=== PATIENT | female | born 1980 | race African-American/Black ===

== ENCOUNTER 2016-04-01 18:35 | Emergency (ER) | payer MEDICAID ==
[~2016-04-01] VITALS: Ht 157.5 cm; Wt 77.1 kg
[~2016-04-01 18:35] MED LIST: CYCLOBENZAPRINE10 MG ORAL; IBUPROFEN600 M1 PO; IBUPROFEN600 MG ORAL; IBUPROFEN800 M1 PO; KENALOG 0.1% CR15 GM APPLIC; LIDOCREAM5 GM TP; NKM; NORCO 5-325 TA1 EACH ORAL
--- NOTE | 2016-04-01 19:25 | Emergency Room Report ---
History of Present Illness General Chief Complaint: Chest Pain Source: Patient Present Illness HPI Patient presents with 2 complaints. The main one is that chief complaint irritation around her rectum. This has been present for approximately a week. She says that her boyfriend has been massaging oil around the area during foreplay. She denies any rectal penetration. She's been using triamcinolone and also Vaseline. Denies any fever. Has no pain there. It is itching. Denies any blood in the stool. The boyfriend has been using protection (condoms). She claims that she does not have any sexually transmitted disease. She's been using biotin and had looser stools recently. The second problem is chest pain. End of February she started having intermittent chest pain that she felt was indigestion. On March 15 she had severe episode where she almost passed out. She also had numbness on her arm. This improved. Although her doctor recommended she go to the emergency department she did not. Since that time the pain has gotten quite a bit better. No diabetes, HTN, family history. She smokes. No fevers, chills, dysuria. Last menses normal. Allergies: Coded Allergies: No Known Allergies (Verified , 03/10/06) Patient History Past Medical History: see triage record Social History: Reports: smoking Social History Narrative has boyfriend Last Menstrual Period: 03/15/16 : 5 Para: 0 Reviewed Nursing Documentation: PMH: Agreed, PSxH: Agreed Nursing Documentation-PM Past Medical History: No History, Except For Hx Cardiac Problems: No - anxiety Review of Systems All Other Systems: negative except mentioned in HPI Physical Exam Vital Signs Date Time Temp Pulse Resp B/P Pulse Ox O2 Delivery O2 Flow Rate FiO2 04/01/16 18:45 98.1 74 18 117/76 99 Room Air Sp02 EP Interpretation: reviewed, normal General Appearance: well appearing, no apparent distress, GCS 15 Head: normocephalic Eyes: bilateral eye normal inspection ENT: moist mucus membranes Neck: supple Respiratory: lungs clear, normal breath sounds Cardiovascular #1: regular rate, rhythm Cardiovascular #2: 2+ radial (R) Gastrointestinal: normal inspection, normal bowel sounds, non tender, no mass, non-distended Rectal: other - Minimal perirectal inflammation with possible ulcerative lesion Musculoskeletal: back normal, gait/station normal, normal range of motion Neurologic: alert, oriented x3, grossly normal Psychiatric: mood/affect normal Skin: normal inspection, warm/dry Medical Decision Making Diagnostic Impression: Primary Impression: Rectal inflammation Additional Impression: Chest pain Qualified Codes: R07.9 - Chest pain, unspecified ER Course Two problems. Most disconcerting is chest pain history with near syncope. This needs evaluation for arrhythmia, pericarditis and electrolyte abnormalities. Labs, EKG and CXR ordered. The second problem has a differential: herpes, allergic reaction, proctitis, STD, fungal infection. Exam more c/w viral process. Swab will be sent. EKG and labs unremarkable. Treated symptomatically. No medical emergency at this time. Patient stable for outpatient observation and treatment. EKG Diagnostic Results Rate: normal Rhythm: NSR ST Segments: no acute changes Rhythm Strip Diag. Results EP Interpretation: yes Rhythm: NSR, no PVC's, no ectopy Chest X-Ray Diagnostic Results EP Interpretation: Yes Findings: no consolidation, no effusion, no pneumothorax, no acute cardiopulmonary disease Number of Views: 1 Last Vital Signs Date Time Temp Pulse Resp B/P Pulse Ox O2 Delivery O2 Flow Rate FiO2 04/01/16 20:45 98.0 78 12 121/78 99 Room Air Status: improved Disposition: HOME, SELF-CARE Condition: Improved Scripts Famotidine (PEPCID) 20 Mg Tablet 20 MG ORAL DAILY, #30 TAB 0 Refills Prov: Norris Jackson M.D. 04/01/16 Bacitracin (Bacitracin) 28.4 Gm Oint...g. 1 APPLIC TOPIC BID, #30 GM Prov: Norris Jackson M.D. 04/01/16 Referrals: [facility],REFERRING (PCP) Norris Jackson M.D. Apr 01, 2016 19:25
[2016-04-01 19:45] LABS: BASOPHILS % (AUTO) 1.5 % (0.0-2.0); EOSINOPHILS % (AUTO) 1.8 % (0.0-3.0); LYMPHOCYTES % (AUTO) 40.4 % (20.0-45.0); MEAN CORPUSCULAR HEMOGLOBIN 28.5 PG (27.0-31.0); MEAN CORPUSCULAR HGB CONC 31.6 G/DL (32.0-36.0); MEAN CORPUSCULAR VOLUME 90 FL (80-99); MEAN PLATELET VOLUME 8.5 FL (6.5-10.1); MONOCYTES % (AUTO) 10.6 % (1.0-10.0); NEUTROPHILS % (AUTO) 45.7 % (45.0-75.0); PLATELET COUNT 241 K/UL (150-450); RED BLOOD COUNT 4.63 M/UL (4.20-5.40); RED CELL DISTRIBUTION WIDTH 12.8 % (11.6-14.8); WHITE BLOOD COUNT 9.4 K/UL (4.8-10.8)
[2016-04-01 19:55] LABS: TROPONIN I < 0.30 ng/mL (<=0.30)
[2016-04-01 19:56] LABS: ALANINE AMINOTRANSFERASE 22 U/L (3-33); ALBUMIN/GLOBULIN RATIO 1.5 (1.0-2.7); ANION GAP 15 (5-15); ASPARTATE AMINO TRANSFERASE 24 U/L (5-40); CALCIUM 9.3 mg/dL (8.6-10.2); CARBON DIOXIDE 25 mEQ/L (20-30); CHLORIDE 95 mEQ/L (98-107); CREATININE 0.9 mg/dL (0.5-0.9); GLOMERULAR FILTRATION RATE > 60 mL/min (>60); HEMOLYSIS 4; POTASSIUM 4.5 mEQ/L (3.4-4.9); SODIUM 135 mEQ/L (135-145); TOTAL PROTEIN 7.2 g/dL (6.6-8.7)
[2016-04-01 20:00] VITALS: BP 121/78
[2016-04-01 20:03] LABS: APPEARANCE,URINE CLEAR; KETONES,URINE NEGATIVE (NEGATIVE); LEUKOCYTE ESTERASE ,URINE NEGATIVE (NEGATIVE); NITRITE,URINE POSITIVE (NEGATIVE); PH,URINE 6 (4.5-8.0); PROTEIN,URINE NEGATIVE (NEGATIVE); UROBILINOGEN,URINE 4 MG/DL (0.0-1.0)
[2016-04-01 20:09] LABS: ICTOTEST NEGATIVE
[2016-04-01 20:13] LABS: RBC,URINE 0-2 /HPF (0 - 2)
[2016-04-01 20:14] LABS: SQUAMOUS EPITHELIAL CELL,UR FEW /LPF (NONE/OCC); WBC,URINE 0 /HPF (0 - 2)
[2016-04-01] MEDS ORDERED: Bacitracin Oint UD TOPIC ONE (20:15)
[2016-04-01] MEDS ORDERED: PEPCID20 MG ORAL (20:21)
[2016-04-01] MEDS ORDERED: BACITRACIN15 GM TOPIC (20:21)
[2016-04-01 20:45] VITALS: BP 121/78
--- NOTE | 2016-04-02 10:32 | Diagnostic Imaging Report ---
Indication: Chest pain Technique: Single portable AP view of the chest. Findings: Comparison: None. The bones and extra pulmonary soft tissues, cardiomediastinal silhouette, pulmonary vasculature and parenchyma, and pleural surfaces are unremarkable. IMPRESSION: Negative portable AP chest.
--- NOTE | 2016-04-02 18:03 | Cardiology Report ---
APPROVED REPORT EKG Measurement Heart [id number] Normal sinus rhythm Possible Left atrial enlargement Borderline ECG
== END 2016-04-01 20:46 | disposition home or self-care (01) ==
LOC: EMR 19:08
DX: K62.89 Other specified diseases of anus and rectum (principal); R07.9 Chest pain, unspecified; R55 Syncope and collapse; F17.200 Nicotine dependence, unspecified, uncomplicated
CPT/HCPCS: 36415; 71010; 80053; 80300; 81003; 81025; 82550; 84484; 85025; 87491; 87590; 93005; 99283

== ENCOUNTER 2017-07-30 08:27 | Emergency (ER) | payer MEDICAID, OTHER ==
[~2017-07-30] VITALS: Ht 157.5 cm; Wt 72.6 kg
[~2017-07-30 08:27] MED LIST changes: +BACITRACIN15 GM TOPIC; +PEPCID20 MG ORAL
[2017-07-30 08:46] VITALS: BP 137/90
[2017-07-30] MEDS ORDERED: IBUPROFEN600 MG ORAL (08:53)
--- NOTE | 2017-07-30 08:57 | Emergency Room Report ---
History of Present Illness General Chief Complaint: Flu Like Symptoms Source: Patient Present Illness HPI Patient present with complaints of body ache Started having a cough on Tuesday she started to feel that her with the cough after taking medication however today was having some increased aching Denies any sore throat denies any neck pain or photophobia Denies any chest pain Denies any coughing of blood Patient does have a history of smoking Otherwise presents for further evaluation Allergies: Coded Allergies: No Known Allergies (Verified , 03/10/06) Patient History Past Medical History: see triage record Pertinent Family History: none Reviewed Nursing Documentation: PMH: Agreed; PSxH: Agreed Nursing Documentation-PMH Hx Cardiac Problems: No - anxiety Review of Systems All Other Systems: negative except mentioned in HPI Physical Exam Vital Signs Date Time Temp Pulse Resp B/P (MAP) Pulse Ox O2 Delivery O2 Flow Rate FiO2 07/30/17 08:41 98.2 70 20 133/90 99 Room Air 98.2 Sp02 EP Interpretation: reviewed, normal General Appearance: well appearing, no apparent distress Head: normocephalic, atraumatic Eyes: bilateral eye PERRL, bilateral eye EOMI ENT: hearing grossly normal, normal pharynx, TMs + canals normal, uvula midline Neck: full range of motion, supple, no meningismus, no bony tend Respiratory: lungs clear, normal breath sounds, no rhonchi, no respiratory distress, no retraction, no accessory muscle use Cardiovascular #1: normal peripheral pulses, regular rate, rhythm, no edema, no gallop, no JVD, no murmur Gastrointestinal: normal bowel sounds, non tender, soft, no mass, no organomegaly, non-distended, no guarding, no hernia, no pulsatile mass, no rebound Genitourinary: no CVA tenderness Musculoskeletal: normal inspection Neurologic: oriented x3, responsive, cake washer III-XII nml as tested, motor strength/ tone normal, sensory intact Psychiatric: mood/affect normal Skin: normal color, no rash, warm/dry, palpation normal Lymphatic: normal inspection, no adenopathy Medical Decision Making Diagnostic Impression: Primary Impression: URI (upper respiratory infection) ER Course Patient has a fairly benign medical evaluation I do not suspect any meningitis or bacterial infection given the examination Patient will require further acute intervention And will return with any worsening changes Otherwise stable for initial conservative outpatient trial Last Vital Signs Date Time Temp Pulse Resp B/P (MAP) Pulse Ox O2 Delivery O2 Flow Rate FiO2 07/30/17 08:46 70 20 Room Air 07/30/17 08:46 98.2 137/90 99 98.2 Status: unchanged Disposition: HOME, SELF-CARE Condition: Stable Scripts Ibuprofen* (MOTRIN*) 600 Mg Tablet 600 MG ORAL Q8H PRN for For Pain, #20 TAB 0 Refills Prov: Eleazar Delatorre DO 07/30/17 Referrals: NON PHYSICIAN (PCP) Departure Forms: Return to Work Return to Work in (Days): 1 Return to Work Date: July 31, 2017 Patient Instructions: Upper Respiratory Infection, Adult Additional Instructions: Patient is provided with the discharge instructions notified to follow up with primary doctor in the next 2-3 days otherwise return to the er with any worsening symptoms. Please note that this report is being documented using [employer] technology. This can lead to erroneous entry secondary to incorrect interpretation by the dictating instrument. Eleazar Delatorre DO July 30, 2017 08:57
[2017-07-30 08:58] VITALS: BP 137/90
== END 2017-07-30 09:03 | disposition home or self-care (01) ==
LOC: EMR 08:51
DX: J06.9 Acute upper respiratory infection, unspecified (principal); F41.9 Anxiety disorder, unspecified
CPT/HCPCS: 99283

== ENCOUNTER 2019-01-27 14:47 | Emergency (ER) | payer SELFPAY ==
[~2019-01-27] VITALS: Ht 157.5 cm; Wt 74.8 kg
[2019-01-27 15:00] VITALS: BP 150/90
--- NOTE | 2019-01-27 15:00 | NUR ---
ED Nurse Note: Patient arrive to ED by car from home complaining nausea x 1 week. She vomited once this morning, no diarrhea or fever. She states that she only wants to be cleared by the doctor to be able to continue to work at her current position without limitation. Urine collected and sent to lab. Patient AxO x 4, bed in lowest position.
--- NOTE | 2019-01-27 15:21 | Emergency Room Report ---
History of Present Illness General Chief Complaint: Abdominal Pain Source: Patient, Medical Record Present Illness HPI Disclaimer: Please note that this report is being documented using [employer] technology. This can lead to erroneous entry secondary to incorrect interpretation by the dictating instrument. HPI: 38-year-old female with no reported medical history presents for evaluation of abdominal pain. Symptoms have been present for approximately 1 week. Describes it as upper and lower pain which is intermittent. Originally thought she pulled a muscle but had one episode of nonbloody none bilious emesis today. Cannot recall specific trigger for these pains. She was previously taking medication for acid reflux. She is currently on her menstrual period. Denies any fevers, chills, chest pain, shortness of breath, dysuria, hematuria, flank pain. He is able to eat and drink currently and has no complaints at this time. She was sent in for work for evaluation prior to returning to work. PMH: Denies PSH: Denies Allergies: Denies Social Hx: Smokes cigarettes. Occasional alcohol use Allergies: Coded Allergies: No Known Allergies (Verified , 03/10/06) Patient History Last Menstrual Period: 01/27/2019 Now: No : 1 Para: 0 Nursing Documentation-PMH Hx Cardiac Problems: No - anxiety Review of Systems All Other Systems: negative except mentioned in HPI Physical Exam Vital Signs Date Time Temp Pulse Resp B/P (MAP) Pulse Ox O2 Delivery O2 Flow Rate FiO2 01/27/19 14:54 98.2 65 15 152/96 (114) 97 Room Air General: Awake and alert, no acute distress HEENT: NC/AT. EOMI. moist mucous membranes Cardiovascular: RRR. S1 and S2 normal. No murmur appreciated Resp: Normal work of breathing. No cough, wheezing or crackles appreciated Abdomen: Abdomen is soft, nondistended. Nontender Skin: Intact. No abrasions, laceration or rash over the exposed skin MSK: Normal tone and bulk. Moving all extremities. No obvious deformity. Neuro: Awake and alert. Mentating appropriately. Medical Decision Making Diagnostic Impression: Primary Impression: Abdominal pain ER Course 38-year-old female with no medical history presents for evaluation of 1 week intermittent abdominal pain. She is currently asymptomatic has no complaints. She was sent in for evaluation prior to returning to work. Differential includes was not limited to muscle strain, GERD, pancreatitis, cholecystitis, viral syndrome, urinary tract infection. Patient's exam is completely benign and she is eating in the room without difficulty. Will obtain a urinalysis and test but otherwise the patient can return to full duties with Tylenol Motrin as needed for pain and discomfort. I did encourage her to restart her medication for acid reflux and limit her spicy food intake. Laboratory Tests Test 01/27/19 15:15 Urine Color Yellow Urine Appearance Cloudy Urine pH 6 (4.5-8.0) Urine Specific [place] 1.020 (1.005-1.035) Urine Protein 2+ (NEGATIVE) H Urine Glucose (UA) Negative (NEGATIVE) Urine Ketones 1+ (NEGATIVE) H Urine Blood 5+ (NEGATIVE) H Urine Nitrite Negative (NEGATIVE) Urine Bilirubin Negative (NEGATIVE) Urine Urobilinogen 4 MG/DL (0.0-1.0) H Urine Leukocyte Esterase 1+ (NEGATIVE) H Urine RBC 5-10 /HPF (0 - 2) H Urine WBC 2-4 /HPF (0 - 2) Urine Squamous Epithelial Cells Many /LPF (NONE/OCC) H Urine Bacteria Many /HPF (NONE) H Urine HCG, Qualitative Negative (NEGATIVE) Reevaluation Time: 15:40 Last Vital Signs Date Time Temp Pulse Resp B/P (MAP) Pulse Ox O2 Delivery O2 Flow Rate FiO2 01/27/19 14:54 98.2 65 15 152/96 (114) 97 Room Air Reevaluation Impression Alerted by nursing staff that the patient is requesting to leave immediately and does not want to wait for her lab results. She states her right is here. She can call records to obtain her lab results later this week. She should follow-up with her PMD. She is in no acute distress with stable vital signs. Stable for outpatient follow-up. Labs show positive leukocyte esterase and many bacteria there also many squamous cells and only 2-4 white cells. The patient denied any symptoms of a urinary tract infection and was on her menses. Will wait for the culture results. The patient left the emergency department prior to resolution of her labs. hCG was negative. Disposition: HOME, SELF-CARE Condition: Stable Referrals: NOT [facility]OSEN [facility]/,REFERRING (PCP) Dillon Dale MD Jan 27, 2019 15:20
[2019-01-27 15:39] LABS: APPEARANCE,URINE CLOUDY; BILIRUBIN, URINE NEGATIVE (NEGATIVE); GLUCOSE, URINE (UA) NEGATIVE (NEGATIVE); KETONES,URINE 1+ (NEGATIVE); LEUKOCYTE ESTERASE ,URINE 1+ (NEGATIVE); NITRITE,URINE NEGATIVE (NEGATIVE); PH,URINE 6 (4.5-8.0); PROTEIN,URINE 2+ (NEGATIVE); UROBILINOGEN,URINE 4 MG/DL (0.0-1.0)
[2019-01-27 15:42] LABS: COLOR,URINE YELLOW
[2019-01-27 15:45] VITALS: BP 148/91
== END 2019-01-27 15:45 | disposition home or self-care (01) ==
LOC: EMR 15:06
DX: R10.9 Unspecified abdominal pain (principal); F17.210 Nicotine dependence, cigarettes, uncomplicated; F41.9 Anxiety disorder, unspecified
CPT/HCPCS: 81003; 81025; 87086; 96374; 99284

== ENCOUNTER 2019-11-22 18:18 | Emergency (ER) | payer SELFPAY ==
[~2019-11-22] VITALS: Ht 157.5 cm; Wt 84.8 kg
[2019-11-22 18:31] VITALS: BP 137/82
--- NOTE | 2019-11-22 18:57 | Emergency Room Report ---
History of Present Illness General Chief Complaint: Skin Rash/Abscess Source: Patient Present Illness HPI 39 Yo Female presents to the ED c/o Itching, swelling, scabbing and erythema of multiple insect bites that are causing a 7/10 in severity burning pain. Pt. reports acute onset after awaking 3 days ago. Pt. denies fevers, chills or swollen tender lymph nodes. Denies lesions/rashes elsewhere on the body. Denies new medications or body washes or creams. Denies swelling of the lips, tongue , throat or airway. Denies wheezing, or shortness of breath. Denies recent travel , recent illness or ill contacts. denies blisters, oral lesions, or sloughing of the skin. Allergies: Coded Allergies: No Known Allergies (Verified , 03/10/06) COVID-19 Screening Contact w/high risk pt: No Experienced COVID-19 symptoms?: No COVID-19 Testing performed CLIENT SERVICE SUPERVISOR: No Patient History Past Medical History: see triage record Past Surgical History: none Pertinent Family History: none Now: No Immunizations: UTD Reviewed Nursing Documentation: PMH: Agreed; PSxH: Agreed Nursing Documentation-PMH Past Medical History: No History, Except For Hx Cardiac Problems: No - anxiety Review of Systems All Other Systems: negative except mentioned in HPI Physical Exam Vital Signs Date Time Temp Pulse Resp B/P (MAP) Pulse Ox O2 Delivery O2 Flow Rate FiO2 11/22/19 18:21 97.7 70 16 137/82 (100) 99 Room Air Sp02 EP Interpretation: reviewed, normal General Appearance: no apparent distress, alert, GCS 15, non-toxic Head: normocephalic, atraumatic Eyes: bilateral eye normal inspection, bilateral eye PERRL ENT: hearing grossly normal, normal voice, other - no swelling of the lips or tongue Neck: full range of motion, other - No stridor Respiratory: chest non-tender, lungs clear, normal breath sounds, no wheezing, speaking full sentences Musculoskeletal: back normal, normal range of motion, gait/station normal, non- tender Neurologic: alert, motor strength/tone normal, oriented x3, sensory intact, responsive, speech normal Psychiatric: judgement/insight normal Skin: rash - Multiple discrete scabbed lesions that are circular in appearance and no more than 1 cm each scattered on the left upper extremity. There is some surrounding erythema and soft tissue swelling. No blisters or vesicles. NO erythematous streaks Medical Decision Making PA Attestation Dr. Small is my supervising Physician whom patient management has been discussed with. Diagnostic Impression: Primary Impression: Insect bites of multiple sites, infected ER Course 39 Yo Female presents to the ED c/o Itching, swelling, scabbing and erythema of multiple insect bites that are causing a 7/10 in severity burning pain. Pt. reports acute onset after awaking 3 days ago. Pt. denies fevers, chills or swollen tender lymph nodes. Denies lesions/rashes elsewhere on the body. Denies new medications or body washes or creams. Denies swelling of the lips, tongue , throat or airway. Denies wheezing, or shortness of breath. Denies recent travel , recent illness or ill contacts. denies blisters, oral lesions, or sloughing of the skin. Ddx considered but are not limited to cellulitis, scabies, insect bites, tic bites, spider bites, contact dermatitis, Drug reaction, allergic reaction, fungal infection, lice. Vital signs: are WNL, pt. is afebrile H&PE are most consistent with multiple discrete insect bites of the left upper extremity and multiple sites with some evidence of secondary bacterial infection. ORDERS: none required at this time, the diagnosis is clinical ED INTERVENTIONS: None required at this time. DISCHARGE: At this time pt. is stable for d/c to home. Will provide printed patient care instructions, and any necessary prescriptions. Care plan and follow up instructions have been discussed with the patient prior to discharge. Last Vital Signs Date Time Temp Pulse Resp B/P (MAP) Pulse Ox O2 Delivery O2 Flow Rate FiO2 11/22/19 18:31 85 16 137/82 99 Room Air 11/22/19 18:21 97.7 Disposition: HOME, SELF-CARE Condition: Stable Scripts Hydrocortisone Acetate (Hydrocortisone Acetate 1% Cream) 28.4 Gm Cream..g. 1 APPLIC TP TID, #28 GM Prov: Jossy Lancaster 11/22/19 Trimethoprim/Sulfamethoxazole 160/800* (BACTRIM DS TABLET*) 1 Each Tablet 1 TAB ORAL TWICE A DAY, #14 TAB Prov: Jossy Lancaster 11/22/19 Cephalexin* (KEFLEX*) 500 Mg Capsule 500 MG ORAL EVERY 12 HOURS, #14 CAP 0 Refills Prov: Jossy Lancaster 11/22/19 Patient Instructions: Insect Bite Additional Instructions: Take medications as directed. Follow up with a Primary Care Provider in 3-5 days, even if your symptoms have resolved. Return sooner to ED if new symptoms occur, or current symptoms become worse. - Please note that this Emergency Department Report was dictated using [employer] hand technology software, occasionally this can lead to erroneous entry secondary to interpretation by the dictation equipment. Jossy Lancaster Nov 22, 2019 18:57
[2019-11-22] MEDS ORDERED: HYDROCORTISON28.4 G6 TP (18:59)
[2019-11-22] MEDS ORDERED: CEPHALEXIN500 MG ORAL (18:59)
[2019-11-22] MEDS ORDERED: BACTRIM DS TAB1 EAC1 ORAL (18:59)
[2019-11-22 19:10] VITALS: BP 137/82
== END 2019-11-22 19:10 | disposition home or self-care (01) ==
LOC: EMR 18:50
DX: S40.862A Insect bite (nonvenomous) of left upper arm, initial encounter (principal); T14.8XXA Other injury of unspecified body region, initial encounter; W57.XXXA Bitten or stung by nonvenomous insect and other nonvenomous arthropods, initial encounter; Y93.9 Activity, unspecified; Y92.9 Unspecified place or not applicable
CPT/HCPCS: 99282